=== PATIENT | male | born 1955 | race Caucasian/White ===

== ENCOUNTER 2016-10-14 18:40 | Emergency (ER) | payer BC ==
[2016-10-14 20:10] VITALS: BP 132/69
--- NOTE | 2016-10-14 20:43 | UC ---
Abdominal Pain Male HPI - HPI Summary HPI Summary: some nausea over the past 2 days---dry heaves no emesis decrease appetite normal bowels. occasional crampy abd pain no fevers - History of Current Complaint Chief Complaint: UCGI Stated Complaint: NAUSEA Time Seen by Provider: 10/14/16 20:12 Hx Obtained From: Patient Onset/Duration: Gradual Onset, Lasting Days - 2 Timing: Intermittent Episodes Lasting: Severity Initially: Mild Severity Currently: None Pain Intensity: 0 Pain Scale Used: 0-10 Numeric Location: Diffuse Radiates: No Character: Cramping Aggravating Factor(s):: Food Alleviating Factor(s): Rest Associated Signs And Symptoms: Positive: Negative - Allergies/Home Medications Allergies/Adverse Reactions: Allergies Allergy/AdvReac Type Severity Reaction Status Date / Time Lisinopril Allergy Hives Verified 10/14/16 20:01 Home Medications: Home Medications Tamsulosin HCl [Flomax] 1 tab DAILY 10/14/16 [History Confirmed 10/14/16] PMH/Surg Hx/FS Hx/Imm Hx Previously Healthy: No Respiratory History Of: Reports: COPD, Asthma Cancer History Of: Reports: Prostate Cancer - Surgical History Surgical History: Yes Surgery Procedure, Year, and Place: right ear x 2, last surgery was 2005, prostate bx - Family History Known Family History: Positive: None Family History: denies cardio vascular issues in family lineage - Social History 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 Lives: With Family Alcohol Use: Rare Substance Use Type: None Smoking Status (MU): Former Smoker When Did the Patient Quit Smoking/Using Tobacco: 8 years ago - Immunization History Most Recent Influenza Vaccination: APR 2016 Most Recent Tetanus Shot: APR 2016 Most Recent Pneumonia Vaccination: APR 2016 Review of Systems Constitutional: Negative Skin: Negative Eyes: Negative ENT: Negative Respiratory: Negative Cardiovascular: Negative Gastrointestinal: Abdominal Pain Genitourinary: Negative Motor: Negative Neurovascular: Negative Musculoskeletal: Negative Neurological: Negative Psychological: Negative All Other Systems Reviewed And Are Negative: Yes Physical Exam Triage Information Reviewed: Yes Appearance: Well-Appearing, No Pain Distress, Well-Nourished Vital Signs: Initial Vital Signs Temp 99.5 F 10/14/16 20:03 Pulse 68 10/14/16 20:03 Resp 18 10/14/16 20:03 BP 132/69 10/14/16 20:03 Pulse Ox 94 10/14/16 20:03 Vital Signs Reviewed: Yes Eye Exam: Normal Eyes: Positive: Conjunctiva Clear ENT Exam: Normal ENT: Positive: Normal ENT inspection, Hearing grossly normal, Pharynx normal, TMs normal. Negative: Nasal congestion, Nasal drainage, Tonsillar swelling, Tonsillar exudate, Trismus, Muffled/hoarse voice Dental Exam: Normal Neck exam: Normal Neck: Positive: Supple, Nontender, No Lymphadenopathy Respiratory Exam: Normal Respiratory: Positive: Chest non-tender, Lungs clear, Normal breath sounds, No respiratory distress, No accessory muscle use Cardiovascular Exam: Normal Cardiovascular: Positive: RRR, No Murmur, Pulses Normal, Brisk Capillary Refill Abdominal Exam: Normal Abdomen Description: Positive: Nontender, No Organomegaly, Soft. Negative: CVA Tenderness (R), CVA Tenderness (L), Hepatomegaly, McBurney's Point Tenderness Bowel Sounds: Positive: Present Musculoskeletal Exam: Normal Musculoskeletal: Positive: Strength Intact, ROM Intact, No Edema Neurological Exam: Normal Neurological: Positive: Alert, Muscle Tone Normal Psychological Exam: Normal Skin Exam: Normal Abd Pain Male Course/Dx - Course Course Of Treatment: zofran prn, advance diet slowly follow with pcp in 1-2 days should symptoms not resolve or worsen in any way - Differential Dx/Clinical Impression Differential Diagnosis/HQI/PQRI: Appendicitis, Bowel Obstruction, Constipation, Diverticulitis, Other - acute nausea, viral syndrome Provider Diagnoses: acute nausea, viral illness Discharge - Discharge Plan Condition: Stable Disposition: HOME Prescriptions: Ondansetron ODT TAB* [Zofran 4 MG Odt TAB*] 4 mg PO Q6H PRN #4 tab.odt PRN Reason: nausea/vomiting Patient Education Materials: Acute Nausea and Vomiting (ED) Referrals: VIRIDIANA Palmer [Primary Care Provider] - 2 Days
[2016-10-14] MEDS ORDERED: Ondansetron ODT TAB* 4 MG PO ONE (20:48)
== END 2016-10-14 20:55 | disposition home or self-care (01) ==
LOC: UCCORT 18:40
DX: B34.9 Viral infection, unspecified (principal); R11.0 Nausea; J44.9 Chronic obstructive pulmonary disease, unspecified; J45.909 Unspecified asthma, uncomplicated; Z85.46 Personal history of malignant neoplasm of prostate; Z87.891 Personal history of nicotine dependence
CPT/HCPCS: 99212; G0463

== ENCOUNTER 2016-12-25 17:58 | Emergency (ER) | payer BC ==
[2016-12-25 18:44] VITALS: BP 125/71
--- NOTE | 2016-12-25 19:04 | UC ---
Abdominal Pain Male HPI - HPI Summary HPI Summary: Vomiting and dry-heaving more than 5 times per day starting 4 days ago. Today only dry-heaving, able to keep down fluids all day and ate a little bit of food. Early on had epigastric discomfort but now having LUQ dull pain. Some loose stool without diarrhea, denies blood in stool, vomit, or urinary symptoms. Pt had radiation through September of 2016. - History of Current Complaint Chief Complaint: UCGeneralIllness Stated Complaint: NAUSEA/VOMITING SINCE WEDNESDAY Time Seen by Provider: 12/25/16 18:20 Hx Obtained From: Patient Onset/Duration: Gradual Onset, Lasting Days Timing: Constant Severity Initially: Moderate Severity Currently: Moderate Location: Epigastric Radiates: No Aggravating Factor(s):: Food, Movement Alleviating Factor(s): Rest Associated Signs And Symptoms: Positive: Nausea, Vomiting. Negative: Constipation, Blood in Stool, Urinary Symptoms, Diarrhea - Allergies/Home Medications Allergies/Adverse Reactions: Allergies Allergy/AdvReac Type Severity Reaction Status Date / Time Lisinopril Allergy Hives Verified 12/25/16 18:28 PMH/Surg Hx/FS Hx/Imm Hx Endocrine History: Diabetes - pre-diabetes Cardiovascular History: Hypertension Respiratory History: COPD Cancer History: Prostate Cancer - Surgical History Surgical History: Yes Surgery Procedure, Year, and Place: right ear x 2, last surgery was 2005, prostate bx - Family History Known Family History: Positive: None Family History: denies cardio vascular issues in family lineage - Social History Occupation: Employed Full-time Alcohol Use: Rare Alcohol Amount: Beer/month Substance Use Type: None Smoking Status (MU): Former Smoker When Did the Patient Quit Smoking/Using Tobacco: 8 years ago - Immunization History Most Recent Influenza Vaccination: APR 2016 Most Recent Tetanus Shot: APR 2016 Most Recent Pneumonia Vaccination: APR 2016 Review of Systems Constitutional: Negative Skin: Negative Eyes: Negative ENT: Negative Respiratory: Negative Cardiovascular: Negative Gastrointestinal: Abdominal Pain, Vomiting, Nausea Genitourinary: Negative Motor: Negative Neurovascular: Negative Musculoskeletal: Negative Neurological: Negative Psychological: Negative All Other Systems Reviewed And Are Negative: Yes Physical Exam Triage Information Reviewed: Yes Appearance: Well-Appearing, No Pain Distress, Obese Vital Signs: Initial Vital Signs Temp 98.5 F 12/25/16 18:30 Pulse 58 12/25/16 18:30 Resp 18 12/25/16 18:30 BP 125/71 12/25/16 18:30 Pulse Ox 95 12/25/16 18:30 Vital Signs Reviewed: Yes Eye Exam: Normal Eyes: Positive: Conjunctiva Clear ENT Exam: Normal ENT: Positive: Normal ENT inspection, Hearing grossly normal, Pharynx normal, TMs normal Neck exam: Normal Neck: Positive: Supple Respiratory Exam: Normal Respiratory: Positive: Chest non-tender, Lungs clear, Normal breath sounds, No respiratory distress, No accessory muscle use Cardiovascular Exam: Normal Cardiovascular: Positive: RRR, No Murmur Abdominal Exam: Other - exam limited by obesity Abdomen Description: Positive: Nontender, Soft. Negative: Guarding, McBurney's Point Tenderness Bowel Sounds: Positive: Present Musculoskeletal Exam: Normal Neurological Exam: Normal Neurological: Positive: Alert Psychological Exam: Normal Skin Exam: Normal Abd Pain Male Course/Dx - Differential Dx/Clinical Impression Provider Diagnoses: acute nausea and vomiting Discharge - Discharge Plan Condition: Stable Disposition: HOME Prescriptions: Prochlorperazine TAB* [Compazine Tab*] 5 - 10 mg PO Q6H PRN #30 tab PRN Reason: Nausea Patient Education Materials: Acute Nausea and Vomiting (ED) Referrals: Tayler Oh MD [Primary Care Provider] - Additional Instructions: As we discussed, your nausea and vomiting do not appear to be from a simple intestinal virus. I cannot say from physical exam whether there may be new complications of your prostate cancer (or its treatment). If your symptoms worsen, especially if you have fever, increasing pain, trouble with breathing, uncontrolled vomiting, or blood in your vomit or stool, please go to the nearest emergency department right away. It is important for you to be seen by your primary care office within the next 1.5 weeks, even if you have to see someone who is not your primary doctor.
[2016-12-26 14:19] LABS: Hematocrit 40 % (42-52); Hemoglobin 13.7 g/dl (14.0-18.0); Mean Corpuscular HGB Conc 34 g/dl (31-36); Mean Corpuscular Hemoglobin 30 pg (27-31); Mean Corpuscular Volume 89 fL (80-94); Mean Platelet Volume 10 um3 (7.4-10.4); Red Blood Count 4.51 10^6/ul (4.0-5.4); Red Cell Distribution Width 13 % (10.5-15); White Blood Count 8.5 10^3/ul (3.5-10.8)
[2016-12-26 14:32] LABS: Albumin 4.2 g/dL (3.2-5.2); BUN/Creatinine Ratio 15.7 (8-20); Calcium 9.5 mg/dL (8.6-10.3); EGFR Non-African American 86.3 (>60); Globulin 2.5 g/dL (2-4); Potassium 3.9 mmol/L (3.5-5.0); Total Bilirubin 0.8 mg/dL (0.2-1.0); Total Protein 6.7 g/dL (6.4-8.9)
== END 2016-12-25 20:01 | disposition home or self-care (01) ==
LOC: UCCORT 17:58
DX: R11.2 Nausea with vomiting, unspecified (principal); R73.03 Prediabetes; I10 Essential (primary) hypertension; J44.9 Chronic obstructive pulmonary disease, unspecified; E66.9 Obesity, unspecified; Z85.46 Personal history of malignant neoplasm of prostate; Z87.891 Personal history of nicotine dependence
CPT/HCPCS: 36415; 80053; 81003; 82150; 83690; 85025; 99212; G0463

== ENCOUNTER 2018-07-07 15:49 | Emergency (ER) | payer BC ==
[2018-07-07 16:30] VITALS: BP 135/78
--- NOTE | 2018-07-07 17:27 | UC ---
Respiratory Complaint HPI - HPI Summary HPI Summary: Started last night w/ coughing only; denies sob or LE swelling.. Does use O2. Has albuterol neb at home but has not used it in many months. Was told his COPD doesn't need any inhalers. - History of Current Complaint Chief Complaint: UCGeneralIllness Stated Complaint: SINUS/CHEST CONGESTION (HX:COPD) Time Seen by Provider: 07/07/18 17:08 Hx Obtained From: Patient Pain Intensity: 8 Pain Scale Used: 0-10 Numeric - Allergies/Home Medications Allergies/Adverse Reactions: Allergies Allergy/AdvReac Type Severity Reaction Status Date / Time lisinopril Allergy Hives Verified 07/07/18 16:19 Home Medications: Home Medications Ibuprofen TAB* [Advil TAB*] 400 mg PO Q6H PRN 07/07/18 [History Confirmed ] PMH/Surg Hx/FS Hx/Imm Hx - Additional Past Medical History Additional PMH: prostate ca Endocrine History: Diabetes Respiratory History: COPD - Surgical History Surgical History: Yes Surgery Procedure, Year, and Place: right ear x 2, last surgery was 2005, prostate bx - Family History Known Family History: Positive: None Family History: denies cardio vascular issues in family lineage - Social History Alcohol Use: Rare Alcohol Amount: Beer/month Substance Use Type: None Smoking Status (MU): Former Smoker When Did the Patient Quit Smoking/Using Tobacco: 2007 years ago - Immunization History Most Recent Influenza Vaccination: APR 2016 Most Recent Tetanus Shot: APR 2016 Most Recent Pneumonia Vaccination: APR 2016 Review of Systems All Other Systems Reviewed And Are Negative: Yes Constitutional: Positive: Negative. Negative: Fever, Chills, Fatigue Skin: Negative: Rash ENT: Negative: Sore Throat, Ear Ache, Nasal Discharge, Sinus Congestion Respiratory: Positive: Cough. Negative: Shortness Of Breath Cardiovascular: Negative: Chest Pain Neurological: Negative: Headache Physical Exam Triage Information Reviewed: Yes Appearance: Well-Appearing Vital Signs: Initial Vital Signs Temp 98.8 F 07/07/18 16:23 Pulse 75 07/07/18 16:23 Resp 20 07/07/18 16:23 BP 135/78 07/07/18 16:23 Pulse Ox 96 07/07/18 16:23 Vital Signs Reviewed: Yes ENT: Positive: Normal ENT inspection Neck: Positive: Supple, Nontender, No Lymphadenopathy Respiratory: Positive: Decreased breath sounds. Negative: Crackles, Rhonchi, Stridor, Wheezing Cardiovascular Exam: Normal Neurological: Positive: Alert Skin Exam: Normal UC Diagnostic Evaluation - Laboratory O2 Sat by Pulse Oximetry: 96 Respiratory Course/Dx - Course Course Of Treatment: Mild copd exacerbation in a pt. that was not using inhalers as rx'd. Not thought to have bacterial source. Was not using albuterol at home but strongly encouraged him to use Q4-6hrs for symptoms. cont. O2. restarted his advair which he should be using every day. - Differential Dx/Diagnosis Differential Diagnosis/HQI/PQRI: Asthma, Bronchitis, CHF, Lower Resp Infection Provider Diagnosis: COPD exacerbation Discharge - Sign-Out/Discharge Documenting (check all that apply): Patient Departure All imaging exams completed and their final reports reviewed: No - Discharge Plan Condition: Good Disposition: HOME Prescriptions: Fluticasone-Salmeterol 250-50* [Advair Diskus 250-50*] 1 puff INH BID 30 Days # 1 diskus Patient Education Materials: Acute Bronchitis (ED) Referrals: Thierry Helton PA [Primary Care Provider] - Additional Instructions: You do not have pneumonia but you should follow up with your main doctor to make sure you don't need other inhalers. I have sent some for your COPD. Please use as directed. Please continue albuterol treatment/inhalers at home for any cough, chest tightness or shortness of breath. - Billing Disposition and Condition Condition: GOOD Disposition: Home
== END 2018-07-07 18:27 | disposition home or self-care (01) ==
LOC: UCCORT 15:49
DX: J44.1 Chronic obstructive pulmonary disease with (acute) exacerbation (principal); E11.9 Type 2 diabetes mellitus without complications; Z85.46 Personal history of malignant neoplasm of prostate; Z87.891 Personal history of nicotine dependence
CPT/HCPCS: 71046; 99212; G0463